=== PATIENT | male | born 1980 | race Two or more races ===

== ENCOUNTER 2024-11-15 22:00 | Emergency (ER) | payer BC, SELFPAY ==
[2024-11-15 22:09] VITALS: BP 137/98
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
== END 2024-11-16 00:11 | disposition home or self-care (01) ==
LOC: EMR 22:00
PROVIDERS: EMERGENCY PHYSICIAN Student in an Organized Health Care Education/Training Program
DX: F32.A Depression, unspecified (principal); F41.9 Anxiety disorder, unspecified; Z63.8 Other specified problems related to primary support group; I10 Essential (primary) hypertension; F43.25 Adjustment disorder with mixed disturbance of emotions and conduct
CPT/HCPCS: 99282